=== PATIENT | male | born 1945 | race Caucasian/White ===

== ENCOUNTER 2022-07-27 11:03 | Emergency (ER) | payer MEDICARE, BC, SELFPAY ==
[2022-07-27] VITALS (12 sets, daily range): BP systolic 106–138; BP diastolic 51–66; PULSE 51–60; RESP 14–18; TEMP 36.6; O2SAT 96–100; BMI 32.9
--- NOTE | 2022-07-27 12:22 | DI.CT.S_ITS ---
PROCEDURE: CT LUMBAR SPINE WO CON INDICATIONS: back pain/fall TECHNIQUE: Noncontrast 3 mm thick sections acquired from the T12 level to the sacrum. Sagittal and coronal reformats were constructed. For radiation dose reduction, the following was used: automated exposure control. COMPARISON: None. FINDINGS: Image quality: Excellent. Bones: There is normal bony alignment. No acute vertebral body compression fractures. No suspicious lytic or blastic bony lesions. No pars defects. Multilevel endplate osteophyte formation. Facet hypertrophy throughout the lumbar spine. Posterior fusion hardware at L4-L5. Soft tissues: No retroperitoneal masses or hematomas. Visualized aorta is normal in caliber. IMPRESSION: 1. Postsurgical sequelae. 2. No fracture. Dictated by: Lissette Hermosillo M.D. on 07/27/2022 at 13:05 Approved by: Lissette Hermosillo M.D. on 07/27/2022 at 13:08
[2022-07-27] MEDS: CYCLOBENZAPRINE 10 MG TABLET PO (17:08)
[2022-07-27] MEDS: CODEINE/ACETAMINOPHEN 30/300 TABLET 1 TAB PO (17:08)
--- NOTE | 2022-07-27 17:29 | ED.BACK ---
HPI - Back Pain/Injury <Felix Stout PA-C - Last Filed: 07/27/22 21:07> General Chief Complaint: Back Pain/Injury Stated Complaint: lower back injury Time Seen by Provider: 07/27/22 15:58 Source: patient History of Present Illness HPI Narrative: 77-year-old male with past medical history diabetes, hypercholesterolemia, CAD status post stents, presents to the ED with 4 days of lower back pain. Patient states that he had a spinal fusion in the past. Patient was twisting to grab his sunglasses 4 days ago when he felt a twinge and has had left-sided lower back pain in the L5-S1 region. Patient states pain is aggravated by movements. Patient denies numbness, tingling, weakness. Patient's pain does not radiate. Patient denies saddle paresthesias, urinary hesitancy, urinary incontinence, bowel incontinence. Patient cannot take NSAIDs due to his stents. Patient tried some high strength Tylenol with minimal relief. Related Data Home Medications Medication Instructions Recorded Confirmed [FIBER] ##0 06/11/17 aspirin 81 mg chewable tablet 81 mg PO QDAY ##0 06/11/17 atorvastatin 20 mg tablet (Lipitor) 20 mg PO HS ##0 06/11/17 loratadine 10 mg tablet (Claritin) 10 mg PO QDAYP PRN ##0 06/11/17 niacin 500 mg tablet,extended 500 mg PO BID ##0 06/11/17 release 24 hr (Niaspan) nystatin 100,000 unit/gram topical ##0 06/11/17 powder (Nyamyc) pioglitazone 15 mg tablet (Actos) 15 mg PO QDAY ##0 06/11/17 Previous Rx's Medication Instructions Recorded acetaminophen 300 mg-codeine 30 mg 1 tab PO BID PRN pain 3 days #6 07/27/22 tablet tabs cyclobenzaprine 10 mg tablet 10 mg PO TID 3 days #9 tabs 07/27/22 Allergies Allergy/AdvReac Type Severity Reaction Status Date / Time Sulfa (Sulfonamide Allergy Unknown Verified 07/27/22 17:06 Antibiotics) [SULFA (SULFONAMIDE ANTIBIOTICS)] latex Allergy Hives Verified 07/27/22 17:06 Review of Systems <Felix Stout PA-C - Last Filed: 07/27/22 21:07> Review of Systems ROS Unobtainable: All systems reviewed & are unremarkable except as noted in HPI and below Constitutional Constitutional: Denies chills, Denies fatigue, Denies fever(s), Denies frequent falls, Denies lethargy and Denies weakness Eyes Eyes: Denies change in vision, Denies eye discharge, Denies irritation and Denies loss of vision ENT Ears, Nose, Mouth, and Throat: Denies change in voice, Denies dizziness, Denies neck pain, Denies sore throat and Denies throat swelling Cardiovascular Cardiovascular: Denies chest pain, Denies irregular heart rhythm, Denies lightheadedness, Denies palpitations, Denies dyspnea, Denies dyspnea on exertion and Denies orthopnea Respiratory Respiratory: Denies cough, Denies dyspnea, Denies dyspnea on exertion and Denies wheezing Gastrointestinal Gastrointestinal: Denies abdominal pain, Denies change in bowel habits, Denies diarrhea, Denies nausea and Denies vomiting Genitourinary Genitourinary: Denies hematuria, Denies flank pain, Denies urinary incontinence and Denies urinary urgency Musculoskeletal Musculoskeletal: Reports back pain, Denies muscle weakness, Denies neck pain, Denies numbness and Denies tingling Integumentary/Breasts Skin/Breast: Denies pruritus, Denies erythema, Denies rash and Denies wounds Neurologic Neurologic: Denies behavioral changes, Denies confusion, Denies dizziness, Denies frequent falls, Denies loss of vision, Denies numbness, Denies tingling and Denies weakness Psychiatric Psychiatric: Denies anxiety, Denies behavioral changes, Denies confusion, Denies depression, Denies homicidal ideation and Denies suicidal ideation Endocrine Endocrine: Denies fatigue, Denies flushing and Denies palpitations Hematologic/Lymphatic Hematologic/Lymphatic: Denies easy bruising Allergic/Immunologic Allergic/Immunologic: Denies urticaria, Denies throat swelling and Denies wheezing Patient History <Felix Stout PA-C - Last Filed: 07/27/22 21:07> Surgical History History of tonsillectomy Status post appendectomy Family History Brother Age: 80 Heart disease Hypertension Stroke Sister Age: 86 Heart disease Social History Smoking Status: Never smoker Smoking Status: Never smoker alcohol intake frequency: 0-2 drinks per day Substance Use Type: does not use Exam <Felix Stout PA-C - Last Filed: 07/27/22 21:07> Narrative Exam Narrative: Const General:?cooperative, healthy appearing and comfortable HENSD Head:?normal to inspection Ears:?hearing grossly normal bilaterally Nose:?external nose normal Face and sinus:?normal facial exam and sinuses nontender Mouth:?oral mucosae normal Throat:?posterior oropharynx normal Eyes General:?appearance normal, both eyes and all related structures Neck Neck:?normal visual inspection and no lymphadenopathy noted Resp Effort & Inspection:?normal respiratory effort Auscultation:?clear to auscultation bilaterally Cardio Rate:?regular rate Rhythm:?regular rhythm Musculoskeletal No midline tenderness to palpation. No paraspinal tenderness to palpation. No bruising or deformities noted on exam. Patient is neurovascularly intact. Neuro General:?patient alert, patient awake and patient oriented x3 Initial Vital Signs Initial Vital Signs: Vital Signs Temperature 97.8 F 07/27/22 11:29 Pulse Rate 60 07/27/22 11:29 Respiratory Rate 18 07/27/22 11:29 Blood Pressure 138/66 07/27/22 11:29 Pulse Oximetry 97 07/27/22 11:29 Oxygen Delivery Method 07/27/22 11:29 <Liliana Harvey DO - Last Filed: 07/28/22 08:13> Initial Vital Signs Initial Vital Signs: Vital Signs Temperature 97.8 F 07/27/22 11:29 Pulse Rate 60 07/27/22 11:29 Respiratory Rate 18 07/27/22 11:29 Blood Pressure 138/66 07/27/22 11:29 Pulse Oximetry 97 07/27/22 11:29 Oxygen Delivery Method 07/27/22 11:29 Course <Felix Stout PA-C - Last Filed: 07/27/22 21:07> Orders Ordered: Discontinued Medications Acetaminophen/Codeine Phosphate (Codeine/Acetaminophen 30/300 Tablet) 1 tab PO NOW ONE Stop: 07/27/22 16:47 Last Admin: 07/27/22 17:08 Dose: 1 tab Documented By: LETI Cyclobenzaprine HCl (Cyclobenzaprine 10 Mg Tablet) 10 mg PO NOW ONE Stop: 07/27/22 16:47 Last Admin: 07/27/22 17:08 Dose: 10 mg Documented By: LETI Vital Signs Vital signs: Vital Signs - 8 hr 07/27/22 15:36 07/27/22 15:37 07/27/22 16:00 Pulse Rate 53 L 51 L 58 L Respiratory Rate 14 Blood Pressure 127/59 L Pulse Oximetry 97 98 96 Oxygen Delivery Method 07/27/22 16:01 07/27/22 16:01 07/27/22 16:30 Pulse Rate 57 L 55 L Respiratory Rate Blood Pressure 106/51 L Pulse Oximetry 97 99 Oxygen Delivery Method 07/27/22 16:31 07/27/22 16:31 07/27/22 17:00 Pulse Rate 55 L 54 L Respiratory Rate Blood Pressure 130/62 Pulse Oximetry 99 98 Oxygen Delivery Method 07/27/22 17:01 07/27/22 17:01 07/27/22 17:30 Pulse Rate 54 L 52 L Respiratory Rate Blood Pressure 122/56 L Pulse Oximetry 98 100 Oxygen Delivery Method Room Air 07/27/22 17:31 07/27/22 17:31 07/27/22 18:08 Pulse Rate 51 L 55 L Respiratory Rate 18 Blood Pressure 129/58 L 138/64 Pulse Oximetry 99 99 Oxygen Delivery Method Room Air <Liliana Harvey, - Last Filed: 07/28/22 08:13> Orders Ordered: Discontinued Medications Acetaminophen/Codeine Phosphate (Codeine/Acetaminophen 30/300 Tablet) 1 tab PO NOW ONE Stop: 07/27/22 16:47 Last Admin: 07/27/22 17:08 Dose: 1 tab Documented By: LETI Cyclobenzaprine HCl (Cyclobenzaprine 10 Mg Tablet) 10 mg PO NOW ONE Stop: 07/27/22 16:47 Last Admin: 07/27/22 17:08 Dose: 10 mg Documented By: LETI Vital Signs Vital signs: Vital Signs - 8 hr 07/27/22 15:36 07/27/22 15:37 07/27/22 16:00 Pulse Rate 53 L 51 L 58 L Respiratory Rate 14 Blood Pressure 127/59 L Pulse Oximetry 97 98 96 Oxygen Delivery Method 07/27/22 16:01 07/27/22 16:01 07/27/22 16:30 Pulse Rate 57 L 55 L Respiratory Rate Blood Pressure 106/51 L Pulse Oximetry 97 99 Oxygen Delivery Method 07/27/22 16:31 07/27/22 16:31 07/27/22 17:00 Pulse Rate 55 L 54 L Respiratory Rate Blood Pressure 130/62 Pulse Oximetry 99 98 Oxygen Delivery Method 07/27/22 17:01 07/27/22 17:01 07/27/22 17:30 Pulse Rate 54 L 52 L Respiratory Rate Blood Pressure 122/56 L Pulse Oximetry 98 100 Oxygen Delivery Method Room Air 07/27/22 17:31 07/27/22 17:31 07/27/22 18:08 Pulse Rate 51 L 55 L Respiratory Rate 18 Blood Pressure 129/58 L 138/64 Pulse Oximetry 99 99 Oxygen Delivery Method Room Air MDM - Back Pain/Injury <Felix Stout PA-C - Last Filed: 07/27/22 21:07> Imaging Data Lumbar CT: Radiologist's Impression: PROCEDURE:? CT LUMBAR SPINE WO CON ? INDICATIONS:? back pain/fall ? TECHNIQUE:? Noncontrast 3 mm thick sections acquired from the T12 level to the sacrum.? Sagittal and coronal reformats were constructed.? For radiation dose reduction, the following was used:? automated exposure control.? ? COMPARISON:? None. ? FINDINGS:? Image quality:? Excellent.? ? Bones:? There is normal bony alignment.? No acute vertebral body compression fractures.? No suspicious lytic or blastic bony lesions.? No pars defects.? Multilevel endplate osteophyte formation.? Facet hypertrophy throughout the lumbar spine.? Posterior fusion hardware at L4-L5. ? Soft tissues:? No retroperitoneal masses or hematomas.? Visualized aorta is normal in caliber.? ? ? IMPRESSION:? 1. Postsurgical sequelae. 2. No fracture.? ? ? Dictated by: Lissette Hermosillo M.D. on 07/27/2022 at 13:05 ? ? Approved by: Lissette Hermosillo M.D. on 07/27/2022 at 13:08 ? MDM Narrative Medical decision making narrative: 77-year-old male with past medical history diabetes, hypercholesterolemia, CAD status post stents, presents to the ED with 4 days of lower back pain. Concern for fracture/dislocation versus musculoskeletal sprain/strain. Lumbar CT obtained, which showed no acute findings. Patient's symptoms likely due to a back sprain/strain. Patient's symptoms improved with Flexeril, Tylenol with codeine. ED return precautions discussed with patient. Patient verbalized understanding. Discharge Plan Departure Patient Disposition: Home Clinical Impression: Strain of lumbar region Instructions: DI for Back Strain or Sprain Activity Restrictions/Additional Instructions: You were evaluated in the ED today for lower back pain. The lumbar CT did not show any fractures or dislocations. Your symptoms are likely due to a lumbar sprain/strain. Your pain responded well to Flexeril and Tylenol with codeine. You may continue to take Flexeril at home for your symptoms. Return to the ED if your symptoms worsen, you have any numbness, tingling, weakness, urinary problems. Prescriptions: New acetaminophen-codeine 300-30 mg tablet 1 tab PO BID PRN (Reason: pain) 3 Days Qty: 6 0RF cyclobenzaprine 10 mg tablet 10 mg PO TID 3 Days Qty: 9 0RF No Action pioglitazone [Actos] 15 MG tablet 15 mg PO QDAY Qty: 0 atorvastatin [Lipitor] 20 MG tablet 20 mg PO HS Qty: 0 aspirin 81 MG tablet,chewable 81 mg PO QDAY Qty: 0 niacin [Niaspan Extended-Release] 500 MG tablet extended release 24 hr 500 mg PO BID Qty: 0 nystatin [Nyamyc] 15 GM powder Qty: 0 loratadine [Claritin] 10 MG tablet 10 mg PO QDAYP PRNQty: 0 [FIBER] Qty: 0 Referrals: Michael Cody MD [Primary Care Provider] - Visit Report Forms: Patient Portal/API <Liliana Harvey DO - Last Filed: 07/28/22 08:13> Cosign ED Attending Lorna Attestation: I was immediately available in the department for consultation. Documentation has been reviewed.
== END 2022-07-27 18:12 | disposition home or self-care (01) ==
PROVIDERS: Emergency Provider Student in an Organized Health Care Education/Training Program; PCP Family Medicine
DX: S39.012A Strain of muscle, fascia and tendon of lower back, initial encounter (principal); X50.1XXA Overexertion from prolonged static or awkward postures, initial encounter
CPT/HCPCS: 72131; 99284